=== PATIENT | male | born 1940 | race Hispanic/Latino ===

== ENCOUNTER 2023-05-27 00:32 | Emergency (ER) | payer MEDICARE ==
[~2023-05-27] VITALS: Ht 172.7 cm; Wt 104.3 kg
[2023-05-27] MEDS ORDERED: HYDROCODONE/ACETAMINOPHEN 5/325 MG TAB PO ONE (01:00)
[2023-05-27] MEDS ORDERED: CYCL10TA16 PO (02:33)
[2023-05-27] MEDS ORDERED: MELO-106 PO (02:33)
[2023-05-27] MEDS ORDERED: CYCLOBENZAPRINE HCL 10 MG TABLET ONE (03:02)
[2023-05-27] MEDS ORDERED: CYCLOBENZAPRINE HCL 10 MG TABLET PO ONE (03:30)
[2023-05-27 03:36] VITALS: BP 153/70; PULSE 78; RESP 20; O2SAT 97
== END 2023-05-27 03:45 | disposition home or self-care (01) ==
LOC: EDH 00:32
DX: S73.192A Other sprain of left hip, initial encounter (principal); I10 Essential (primary) hypertension; E78.00 Pure hypercholesterolemia, unspecified; Z98.890 Other specified postprocedural states; W18.39XA Other fall on same level, initial encounter; Y93.89 Activity, other specified; Y92.89 Other specified places as the place of occurrence of the external cause; Y99.8 Other external cause status
CPT/HCPCS: 73502